=== PATIENT | female | born 1970 | race Caucasian/White ===

== ENCOUNTER → 2018-01-16 09:55 | Outpatient (CLI) | payer BC, SELFPAY ==
--- NOTE | 2018-01-16 10:13 | RAD_ITS ---
CLINICAL HISTORY: Female, 47 years old. Chronic right shoulder pain. Prior rotator cuff surgery. PROCEDURE: ARTHROGRAM - RIGHT SHOULDER CONSENT: The procedure as well as the benefits and possible complications were explained to the patient. Informed consent was obtained. FLUOROSCOPY TIME (if supplied): (36 seconds) minutes/seconds Injection Information: 10 cc of dilute gadolinium this. Number of images obtained: 4 TECHNIQUE: (All elements of maximal sterile barrier technique followed, including US elements as applicable) The patient was in the supine position. The overlying skin was prepped and draped in the usual sterile fashion. Following local anesthetic application and under direct radiographic guidance, a 22-gauge spinal needle was advanced into the shoulder cavity. 2 cc of Isovue 300 was injected for confirmation. Following this, 10 cc of dilute gadolinium based was injected. There is evidence of rotator cuff tear. RAD/Arthrogram Shoulder w/ MRI IMPRESSION: Successful right shoulder arthrogram for MRI. Rotator cuff tear. Electronically Signed: Linwood Kate MD at 12:42 EDT Tel [phone], Service support ,
--- NOTE | 2018-01-16 10:25 | MRI_ITS ---
STUDY: MR RIGHT SHOULDER ARTHROGRAPHY REASON FOR EXAM: Right shoulder pain, rotator cuff repair in September. TECHNIQUE: Standardized fat and water weighted pulse sequences were obtained in all 3 orthogonal planes after intra-articular instillation of dilute Magnevist. COMPARISON: Arthrogram 01/16/2018. FINDINGS: Although there is image degradation secondary to patient motion, particularly on the T1 axial sequence, there is still significant diagnostically useful information available from this examination. There is a gadolinium filled gap of the distal anterior supraspinatus tendon (T1 coronal images 12, 13) measuring approximately 1.6 x 1.1 cm (length x width). Normal infraspinatus tendon. Normal subscapularis tendon. Normal teres minor tendon. Normal supraspinatus muscle. Normal infraspinatus muscle. Normal subscapularis muscle. Normal teres minor muscle. Normal glenohumeral articulation. There are anchors in the humeral head. There is nonvisualization of the intracapsular long biceps tendon, either secondary to tear or biceps tenotomy. Normal labrum. Normal capsulo- ligamentous complex. Status post resection of the distal clavicle. There is dilute gadolinium in the subacromial-subdeltoid bursa. There is iatrogenic edema/contrast in the anterior deltoid muscle. Normal trapezius muscle. MRI/Upper Ext Jt Only W/Contrast IMPRESSION: Full-thickness tear of the supraspinatus tendon. Nonvisualization of the intracapsular long biceps tendon, either secondary to tear or biceps tenotomy. Electronically Signed: Maik Carlson MD at 13:57 EDT Tel , Service support ,
[2018-01-16 11:11] VITALS: BP 139/90; PULSE 87; RESP 16; TEMP 36.6; O2SAT 97; BMI 37.4
--- NOTE | 2018-01-16 15:00 | NURSING ---
nargis hand out post sedation given, mother and patient voiced understanding prior to procedure and prior to discharge [id number]
== END ==
PROVIDERS: Family Provider Nurse Practitioner; PCP Nurse Practitioner; Visit Provider Orthopaedic Surgery
DX: S43.421D Sprain of right rotator cuff capsule, subsequent encounter (principal); M19.011 Primary osteoarthritis, right shoulder
CPT/HCPCS: 23350; 73222; 77002; A4216; A9577; Q9967

== ENCOUNTER → 2018-09-07 13:07 | Outpatient (CLI) | payer BC, SELFPAY ==
--- NOTE | 2018-09-07 13:21 | EKG12_ITS ---
Test Reason : PRE-OP Blood Pressure : / mmHG Vent. Rate : 076 BPM Atrial Rate : 076 BPM P-R Int : 170 ms QRS Dur : 090 ms QT Int : 408 ms P-R-T Axes : 048 003 022 degrees QTc Int : 459 ms Normal sinus rhythm Normal ECG Confirmed by BOSSMAN CROSS ([id number]), telegraph editor OLIVIA SHUKLA ([id number]) on 09/10/2018 2:17:49 PM Referred By: Tino Santiago Confirmed By:BOSSMAN CROSS
[2018-09-07 15:57] LABS: Anion Gap 9 (5-15); BUN 14 mg/dL (7-18); BUN/Creat Ratio 14.2 RATIO (10-20); Calcium,Total 9.2 mg/dL (8.5-10.1); Chloride 108 mmol/L (98-107); Creatinine, Serum 0.98 mg/dL (0.55-1.02); EST Glomerular Filtration Rate 63 mL/min (>60); Est Glom Filt Rate - Afr Amer 77 mL/min (>60); Glucose 80 mg/dL (74-106); Potassium 3.9 mmol/L (3.5-5.1); Sodium Level 141 mmol/L (136-145)
== END ==
PROVIDERS: Family Provider Nurse Practitioner; PCP Nurse Practitioner; Referring Provider Physician Assistant; Visit Provider Physician Assistant
DX: Z01.810 Encounter for preprocedural cardiovascular examination (principal); Z01.818 Encounter for other preprocedural examination
CPT/HCPCS: 80048; 93005

== ENCOUNTER → 2020-07-23 10:25 | Outpatient (CLI) | payer OTHER, SELFPAY ==
[2018-01-16 11:11] VITALS: BMI 37.4
--- NOTE | 2020-07-23 10:31 | ART_ITS ---
Reason For Study: Pain in right ankle and joints of right foot Procedure A bilateral lower extremity continuous wave Doppler with analog waveform analysis,segmental pressures,and ankle brachial indexes without exercise. Left Segmental Pressures Left brachial= 142mmHg. Left posterior tibial artery = 168mmHg. Left dorsalis pedis artery = 149mmHg. Left digit = 110 mmHg. The left dorsalis pedis waveforms are triphasic. The left posterior tibial artery waveforms are triphasic. Right Segmental Pressures Right brachial= 132mmHg. Right posterior tibial artery = 170mmHg. Right dorsalis pedis artery = 183mmHg. Right digit = 129 mmHg. The right dorsalis pedis waveforms are triphasic. The right posterior tibial artery waveforms are triphasic. Indices The right ankle brachial index by the dorsalis pedis is 1.29. The right ankle brachial index by the posterior tibial artery is 1.20. The right digital-brachial index is 0.91. The left ankle brachial index by the dorsalis pedis is 1.05. The left ankle brachial index by the posterior tibial artery is 1.18. The left digital-brachial index is 0.77. Interpretation Summary Triphasic Doppler waveforms are noted at ankle level bilaterally. Pulse-volume recordings appear satisfactory at all levels bilaterally, including low-thigh, calf, ankle, and digital levels. Resting ankle-brachial indices are normal bilaterally. Digital-brachial indices are normal bilaterally. There is no evidence of significant arterial occlusive disease in the lower extremities bilaterally. Ordering Physician: Milton Delgado Referring Physician: Emi Luna Performed By: Sharon Gerber RVT and Student
[2020-09-03 18:45] VITALS: BMI 37.8
== END ==
PROVIDERS: PCP Internal Medicine; Referring Provider Podiatrist Foot & Ankle Surgery; Visit Provider Podiatrist Foot & Ankle Surgery
DX: M19.171 Post-traumatic osteoarthritis, right ankle and foot (principal); M25.571 Pain in right ankle and joints of right foot
CPT/HCPCS: 93923

== ENCOUNTER → 2020-07-29 08:12 | Outpatient (CLI) | payer OTHER, SELFPAY ==
[2018-01-16 11:11] VITALS: BMI 37.4
--- NOTE | 2020-07-29 08:35 | CT_ITS ---
STUDY: CT RIGHT ANKLE WITHOUT CONTRAST REASON FOR EXAM: Female, 50 years old. Post traumatic osteoarthritis. HAVING SURGERY ON SEP 03 TO REMOVE HARDWARE RADIATION DOSAGE (If Supplied By Facility): CTDIvol = ( 15.35 ) mGy, DLP = ( 412.55 ) mGycm TECHNIQUE: Thin section transaxial imaging of the ankle was obtained, with sagittal and coronal reconstructed images. Individualized dose optimization techniques were used for this CT. COMPARISON: None. FINDINGS: The patient is status post intramedullary jones fixation of a distal tibial fracture. Status post screw fixation of the medial malleolus. There are 2 metallic screws in the visualized talus.. There is evidence of a bony fusion along the posterior aspect of the distal tibial fibular joint. Marked degree of joint space narrowing and degenerative changes of the distal tibial talar joint and subtalar joint . The soft tissue structures are grossly normal. CT/Extremity Lower without Contra IMPRESSION: Status post intramedullary jones fixation of the distal tibial fracture as described. Screw fixation of the medial malleolus as well as 2 metallic screws seen in the dome of the talus. Electronically Signed: Linwood Kate, at 10:59 EDT , Service support ,
== END ==
PROVIDERS: PCP Internal Medicine; Referring Provider Podiatrist Foot & Ankle Surgery; Visit Provider Podiatrist Foot & Ankle Surgery
DX: M19.171 Post-traumatic osteoarthritis, right ankle and foot (principal)
CPT/HCPCS: 73700

== ENCOUNTER 2020-09-03 17:11 | Observation (INO) | payer OTHER, SELFPAY ==
[2018-01-16 11:11] VITALS: BMI 37.4
[2020-09-03] VITALS (10 sets, daily range): BP systolic 87–154; BP diastolic 56–96; PULSE 77–100; RESP 14–20; TEMP 36.1–37.1; O2SAT 94–100; BMI 37.8
[2020-09-03] MEDS: Lactated Ringers 1,000 ML 100 ML IV ×4 (07:21→18:56)
--- NOTE | 2020-09-03 08:30 | RAD_ITS ---
STUDY: X-RAY - RIGHT TIBIA AND FIBULA REASON FOR EXAM: Hardware removal and ankle fusion. TECHNIQUE: 19 intraoperative images of the tibia and fibula were obtained. COMPARISON: Radiographs 06/02/2016. FINDINGS: There is an intramedullary jones in the tibia transfixing a healed fracture with interval removal of the distal interlocking screws and tibiotalar arthrodesis transfixed with screws. There is healed fracture deformity of the fibular diaphysis. There are surgical clips in the lower leg. 210 seconds of fluoroscopy time was used. Electronically Signed: Maik Carlson MD at 12:37 EST Tel , Service support , RAD/Tibia & Fibula 2 Views
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
--- NOTE | 2020-09-03 17:39 | RAD_ITS ---
STUDY: X-RAY - RIGHT TIBIA AND FIBULA REASON FOR EXAM: Female, 50 years old. post op right ankle and tib fib TECHNIQUE: 2 views of the tib-fib. COMPARISON: No relevant priors. FINDINGS: Intramedullary jones intact in the tibia, with 5 intact screws traversing the tibiotalar joint. Tracts from previous screw transversely through the distal and proximal tibial shaft. Chronic fractures of the mid shafts of the fibula and tibia. Casting or splint material overlies the study. Surgical clips medial to the distal tibia with anterior and drain. RAD/Tibia & Fibula 2 Views IMPRESSION: Postoperative changes as above. No apparent acute fracture or complication. Electronically Signed: Dannie Jeffers, at 7:24 EST Tel , Service support ,
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
--- NOTE | 2020-09-03 17:45 | RAD_ITS ---
STUDY: X-RAY - RIGHT ANKLE REASON FOR EXAM: Female, 50 years old. Postop. TECHNIQUE: 3 view(s) of the ankle. COMPARISON: No relevant priors. FINDINGS: Intramedullary jones partially visible in the tibia, with 5 intact screws traversing the tibiotalar joint. Tracts from previous screw transversely through the distal tibial shaft. Chronic fractures of the mid shafts of the fibula and tibia partially visible. Casting or splint material overlies the study. Surgical clips medial to the distal tibia with anterior and drain. RAD/Ankle min 3 Views IMPRESSION: Postoperative changes as above. No apparent acute fracture or complication. Electronically Signed: Dannie Jeffers, at 7:23 EST Tel , Service support ,
[2020-09-03] MEDS: HYDROmorphone 1 MG/ML Syringe IV (18:57)
[2020-09-03] MEDS: Cefazolin 2 GM in 0.9% Normal Saline 100 ML IV (20:37)
[2020-09-03] MEDS: oxyCODONE 5 MG Tablet PO (20:48)
[2020-09-03] MEDS: Topiramate 50 MG Tablet PO (21:53)
[2020-09-03] MEDS: traMADol 50 MG Tablet PO (22:52)
[2020-09-04] MEDS: HYDROmorphone 1 MG/ML Syringe IV ×6 (02:53→15:50)
[2020-09-04 04:00] VITALS: BP 116/77; PULSE 90; RESP 16; TEMP 36.4; O2SAT 96
[2020-09-04] MEDS: oxyCODONE 5 MG Tablet PO ×4 (04:19→21:02)
[2020-09-04] MEDS: Lactated Ringers 1,000 ML 100 ML IV ×2 (04:55→15:50)
[2020-09-04] MEDS: traMADol 50 MG Tablet PO (05:54)
[2020-09-04] MEDS: Cefazolin 2 GM in 0.9% Normal Saline 100 ML IV ×3 (05:57→21:05)
[2020-09-04 06:11] LABS: Hematocrit 35.1 % (37-47); Hemoglobin 10.9 g/dL (12.0-15.0); Mean Corp Hgb Conc 31.1 g/dL (32-36); Mean Corpuscular Hgb 32.2 pg (27.0-32.0); Mean Corpuscular Volume 103.5 fL (81-99); Mean Platelet Vol. 10.8 fl (6.2-12.0); Platelet Count 253 K/mm3 (150-450); RBC Distribution Width CV 13.1 % (11.6-14.6); RBC Distribution Width SD 49.7 fl (35.1-43.9); Red Blood Count 3.39 M/mm3 (4.2-5.4); White Blood Count 11.2 K/mm3 (4.4-11.0)
[2020-09-04] MEDS: Enoxaparin 40 MG/0.4 ML Syringe SC (06:46)
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
[2020-09-04 08:30] VITALS: PULSE 100
[2020-09-04] MEDS: DiphenhydrAMINE 25 MG Capsule PO (08:32)
[2020-09-04] MEDS: Acetaminophen 500 MG Tablet 1000 MG PO ×3 (08:32→21:12)
[2020-09-04] MEDS: Diclofenac 75 MG Tablet PO ×2 (08:33→16:58)
[2020-09-04 10:20] VITALS: BP 109/66; PULSE 96; RESP 18; TEMP 36.8; O2SAT 93
[2020-09-04] MEDS: Topiramate 50 MG Tablet PO ×2 (10:24→21:13)
[2020-09-04] MEDS: Pantoprazole Sodium 20 MG Tablet PO (10:24)
[2020-09-04] MEDS: 0.9% Saline Lock 10 ML Syringe IV ×3 (10:27→15:50)
--- NOTE | 2020-09-04 13:57 | CASEMGMT ---
MADDISON CM in to discuss discharge planning with patient. Therapy recommending HHC at discharge. RN JAY discussed HHC, patient has had [facility] in the past and would like them again. MADDISON THOMPSON sent referral to [facility] awaiting acceptance. Patient states she has all DME needs met. CM will continue to follow this patient and plan for a safe discharge.
--- NOTE | 2020-09-04 15:33 | CASEMGMT ---
MADDISON THOMPSON updated that patient is accepted by [facility]. MADDISON THOMPSON updated the patient. CM will continue to follow this patient and plan for a safe discharge.
[2020-09-04 15:41] VITALS: BP 113/69; PULSE 83; RESP 16; TEMP 36.7; O2SAT 98
[2020-09-04 20:58] VITALS: BP 114/66; PULSE 82; RESP 18; TEMP 36.8; O2SAT 98
[2020-09-05 02:26] VITALS: BP 123/68; PULSE 82; RESP 16; TEMP 37; O2SAT 97
[2020-09-05] MEDS: Lactated Ringers 1,000 ML 100 ML IV (02:30)
[2020-09-05] MEDS: oxyCODONE 5 MG Tablet PO ×3 (02:31→15:03)
[2020-09-05] MEDS: Cefazolin 2 GM in 0.9% Normal Saline 100 ML IV (06:02)
[2020-09-05] MEDS: Acetaminophen 500 MG Tablet 1000 MG PO ×2 (06:04→15:01)
[2020-09-05] MEDS: Enoxaparin 40 MG/0.4 ML Syringe SC (06:05)
[2020-09-05 08:25] LABS: Hematocrit 32.5 % (37-47); Mean Corp Hgb Conc 30.8 g/dL (32-36); Mean Corpuscular Hgb 31.9 pg (27.0-32.0); Mean Corpuscular Volume 103.8 fL (81-99); Mean Platelet Vol. 9.8 fl (6.2-12.0); Platelet Count 198 K/mm3 (150-450); RBC Distribution Width CV 13.4 % (11.6-14.6); RBC Distribution Width SD 51.6 fl (35.1-43.9); Red Blood Count 3.13 M/mm3 (4.2-5.4); White Blood Count 6.2 K/mm3 (4.4-11.0)
[2020-09-05 08:40] VITALS: BP 127/71; PULSE 87; RESP 16; TEMP 37.1; O2SAT 95
[2020-09-05] MEDS: Diclofenac 75 MG Tablet PO (08:44)
[2020-09-05] MEDS: Pantoprazole Sodium 20 MG Tablet PO (08:44)
[2020-09-05] MEDS: Topiramate 50 MG Tablet PO (08:45)
[2020-09-05] MEDS: HYDROmorphone 1 MG/ML Syringe IV (11:18)
--- NOTE | 2020-09-05 13:43 | PCM.DC.ORTHO ---
Discharge Diet: Light diet - advance as tolerated Discharge Activity: May Not Drive, May Not Shower, Use Walker, Use Crutches Weight Bearing Status: No weight bearing Keep extremity elevated above heart level: Right Leg Additional Activity Instructions:: 1. Keep dressing to right leg clean, dry, intact. Do not get dressing wet. Do not remove dressing. If get dressing wet, call office for further instruction. If wound VAC does stop working or start alarming, call office/hospital to get in touch with Dr. Delgado for further instructions. 2. Ice around right knee minutes every hour while awake. 3. Elevate right foot above level of heart as often as possible. 4. Do not place any weight on right foot. Do not walk or stand on right foot. Use crutches/walker/wheelchair for assistance. 5. Begin taking doxycycline (antibiotic) today, September 05, 2020 as instructed. 6. Begin taking aspirin today, September 05, 2020 as instructed. 7. Begin taking Percocet today, September 05, 2020 as needed. Supplement with extra strength Tylenol. Percocet does contain 325 mg of Tylenol in every pill. Be sure not to take more than 3000 mg of Tylenol in a 24-hour period. 8. If begin to experience increased pain in calf or surgical sites that is not controlled by medication, call office/hospital for further instructions. 9. Follow-up with Cindy Mancuso, nurse practitioner on Monday, September 09, 2020 as previously scheduled. If wound VAC stopped working prior to then, make sure to contact Dr. Delgado and he will have you come in sooner. Call your doctor if your incision/area has: Sudden Increased Bleeding, Increased Pain/ Swelling, Increased Redness Call your doctor if you observe: Fever of 101 or Higher, Coldness, Increased Pain, Shortness of breath, Dizziness, Chest pain, Increased palpitations (irregular heartbeat), Calf discomfort, Uncontrolled pain Cleanse incision/area with: Keep Dressing Clean & Dry Allergies/Adverse Reactions: Allergies hydrocodone bitartrate [From Vicodin] Allergy (Verified 08/31/20 09:23) Hives Medications to take at Discharge Calcium Carbonate/Vitamin D3 [Calcium 600 + D Tablet] 1 each PO DAILY 07/21/15 Calcium Carbonate [Tums] 500 mg PO Q4H PRN PRN #0 tablet 08/13/15 Topiramate [Topamax] 50 mg PO BID 01/16/18 traMADol [Ultram (G)] 50 mg PO Q6H PRN PRN 01/16/18 Diclofenac [Voltaren] 75 mg PO BIDCM 08/31/20 Esomeprazole Magnesium [Nexium 24Hr] 20 mg PO DAILY 08/31/20 Primary Care Physician: Emi Luna MD [Primary Care Provider] - Test Results: Test results from this visit will be discussed in further detail at your follow-up appointment, if applicable. Please Follow Up With: Cindy Mancuso NP, [employer] When: on 09/09/2020 at 1:45pm in [place] Office. Proposed Discharge Date: 09/05/20
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
[2020-09-05 15:00] VITALS: BP 116/65; PULSE 95; RESP 16; TEMP 36.7; O2SAT 94
== END 2020-09-05 15:32 | disposition home health service (06) ==
LOC: SDC 17:44 → MS3 17:44
PROVIDERS: Orthopaedic Surgery; Registered Nurse; Admitting Provider Podiatrist Foot & Ankle Surgery; PCP Internal Medicine; Referring Provider Podiatrist Foot & Ankle Surgery; Visit Provider Podiatrist Foot & Ankle Surgery
PROC: (CPT 20680; principal; 2020-09-03 08:15)
PROC: (CPT 27870; 2020-09-03 08:15)
DX: M19.171 Post-traumatic osteoarthritis, right ankle and foot (principal); Z20.828 Contact with and (suspected) exposure to other viral communicable diseases; T84.84XA Pain due to internal orthopedic prosthetic devices, implants and grafts, initial encounter; E66.9 Obesity, unspecified; Y79.3 Surgical instruments, materials and orthopedic devices (including sutures) associated with adverse incidents; Z79.899 Other long term (current) drug therapy; Z87.891 Personal history of nicotine dependence; Z68.37 Body mass index [BMI] 37.0-37.9, adult
CPT/HCPCS: 01480; 20680; 27870; 64445; 64447; 36415; 73590; 73610; 76000; 85027; 87426; 96361; 96365; 96366; 96372; 96375; 96376; 97110; 97162; 97166; 99218; 99219; C1713; C1776; C9803; J7040; J7120; A4216; G0378; G0379; J2405

== ENCOUNTER → 2021-01-11 07:17 | Outpatient (CLI) | payer OTHER, SELFPAY ==
[2020-09-03 18:45] VITALS: BMI 37.8
--- NOTE | 2021-01-11 07:27 | CT_ITS ---
STUDY: CT LUMBAR SPINE WITHOUT CONTRAST REASON FOR EXAM: Female, 50 years old. LUMBAR RADICULOPATHY, SEVERE LBP, PREV L4-5 SURG 25 YRS AGO RADIATION DOSAGE (If Supplied By Facility): CTDIvol = ( 41.81 ) mGy, DLP = ( 953.78 ) mGycm TECHNIQUE: The patient was scanned in a multi detector CT scanner. High resolution transaxial imaging was performed. Images were obtained from L1 to S1 vertebral level. Sagittal and coronal images were reconstructed. Individualized dose optimization techniques were used for this CT. COMPARISON: Comparison is made with prior study dated 08/04/2017. FINDINGS: There is straightening of the normal lumbar lordosis. There is no substantial scoliosis. Normal vertebrae of the lumbar spine. L1-2: Mild degree of disc space narrowing. Facet joint osteoarthritis and hypertrophy. Mild degree of bilateral neural foraminal stenosis. L2-3: Moderate degree of disc space narrowing. Facet joint osteoarthritis and hypertrophy. L3-4: Moderate degree of disc space narrowing with spondylosis and subchondral sclerosis. This has progressed as compared to prior study. Facet joint osteoarthritis with a moderate degree of bilateral neural foraminal stenosis. L4-5: Marked degree of disc space narrowing and disc degeneration. Hypertrophy of the facet joints. Moderate degree of bilateral neural foraminal stenosis. L5-S1: Moderate degree of disc space narrowing and disc degeneration. Facet joint osteoarthritis. No significant stenosis is seen. Normal visualized paraspinous soft tissue structures. CT/Spine Lumbar without Contrast IMPRESSION: Multilevel degenerative changes, as described above. Bilateral neural foraminal stenosis at the L3-L4 and L4-L5 levels. Electronically Signed: Linwood Kate MD at 15:29 EDT , Service support ,
== END ==
PROVIDERS: PCP Internal Medicine; Referring Provider Nurse Practitioner Family; Visit Provider Nurse Practitioner Family
DX: M47.817 Spondylosis without myelopathy or radiculopathy, lumbosacral region (principal); M51.36 Other intervertebral disc degeneration, lumbar region; M48.061 Spinal stenosis, lumbar region without neurogenic claudication
CPT/HCPCS: 72131

== ENCOUNTER 2021-01-12 13:41 | Outpatient (RCR) | payer OTHER, SELFPAY ==
[2020-09-03 18:45] VITALS: BMI 37.8
[2021-01-12] MEDS: COVID-19 VACC, MRNA(PFIZER)/PF 30 MCG/0.3 ML SYRINGE IM (15:21)
== END 2021-04-06 23:59 ==
LOC: IMMUN 13:41
PROVIDERS: PCP Internal Medicine; Referring Provider Family Medicine; Visit Provider Family Medicine
DX: Z23 Encounter for immunization (principal)
CPT/HCPCS: 0001A; 91300

== ENCOUNTER → 2021-01-19 13:30 | Outpatient (CLI) | payer OTHER, SELFPAY ==
[2020-09-03 18:45] VITALS: BMI 37.8
[2021-01-19 15:24] LABS: Hematocrit 45.2 % (37-47); Mean Platelet Vol. 11.6 fl (6.2-12.0); Platelet Count 288 K/mm3 (150-450); RBC Distribution Width CV 14.4 % (11.6-14.6); RBC Distribution Width SD 51.5 fl (35.1-43.9); Red Blood Count 4.66 M/mm3 (4.2-5.4); White Blood Count 7.4 K/mm3 (4.4-11.0)
[2021-01-19 15:44] LABS: Hemoglobin A1c 5.5 % (3.8-5.6)
[2021-01-19 16:15] LABS: Anion Gap 8 (5-15); BUN 22 mg/dL (7-18); Calcium,Total 9.3 mg/dL (8.5-10.1); Chloride 107 mmol/L (98-107); Creatinine, Serum 0.96 mg/dL (0.55-1.02); EST Glomerular Filtration Rate 65 mL/min (>60); Est Glom Filt Rate - Afr Amer 79 mL/min (>60); Glucose 82 mg/dL (74-106); Potassium 3.8 mmol/L (3.5-5.1); Sodium Level 140 mmol/L (136-145)
== END ==
PROVIDERS: PCP Internal Medicine; Referring Provider Podiatrist Foot & Ankle Surgery; Visit Provider Podiatrist Foot & Ankle Surgery
DX: Z01.818 Encounter for other preprocedural examination (principal); Z11.59 Encounter for screening for other viral diseases
CPT/HCPCS: 36415; 80048; 83036; 85027; 87635; C9803; U0002

== ENCOUNTER → 2021-01-21 08:23 | Outpatient (CLI) | payer OTHER, SELFPAY ==
[2020-09-03 18:45] VITALS: BMI 37.8
[2021-01-21 09:13] LABS: Partial Thromboplast Time 23.4 Seconds (24.1-36.2); Prothrombin Time (Protime)PT. 12.2 SECONDS (11.7-14.9)
== END ==
PROVIDERS: PCP Internal Medicine; Referring Provider Podiatrist Foot & Ankle Surgery; Visit Provider Podiatrist Foot & Ankle Surgery
DX: Z01.818 Encounter for other preprocedural examination (principal)
CPT/HCPCS: 85610; 85730